=== PATIENT | male | born 1970 | race Caucasian/White ===

== ENCOUNTER → 2020-11-19 | Outpatient (CLI) | payer OTHER ==
[~2020-11-19] MED LIST: ASPIRIN EC81 MG PO; ATORVASTATIN CA20 MG PO; HYDROCODON-ACE1 EAC2 PO; IMDUR ER TAB 3030 MG PO
== END ==
LOC: KOH-I 14:56
DX: M25.561 Pain in right knee (principal); M25.461 Effusion, right knee
CPT/HCPCS: 73562

== ENCOUNTER → 2021-01-16 | Outpatient (CLI) | payer OTHER | LOC: EMI 15:39 | DX: M25.561 Pain in right knee (principal); M71.21 Synovial cyst of popliteal space [Baker], right knee | CPT/HCPCS: 73721 ==

== ENCOUNTER → 2021-03-06 | Day surgery (SDC) | payer OTHER ==
[2021-03-06 08:56] LABS: HEMOGLOBIN 16.3 gm/dl (14.0-17.5); RED BLOOD COUNT 5.42 M/UL (4.20-5.50); WHITE BLOOD COUNT 6.3 K/UL (4.5-11.0)
[2021-03-06 09:17] LABS: BUN/CREATININE RATIO 16 (0-10)
== END | disposition home or self-care (01) ==
LOC: OR 08:01
PROVIDERS: Orthopaedic Surgery
PROC: 0SBC4ZZ Excision of Right Knee Joint, Percutaneous Endoscopic Approach (ICD-10-PCS; principal; 2021-03-06 10:25)
DX: S83.231A Complex tear of medial meniscus, current injury, right knee, initial encounter (principal); S83.281A Other tear of lateral meniscus, current injury, right knee, initial encounter; S83.511A Sprain of anterior cruciate ligament of right knee, initial encounter; M17.11 Unilateral primary osteoarthritis, right knee; M22.41 Chondromalacia patellae, right knee; M23.41 Loose body in knee, right knee; I10 Essential (primary) hypertension; E78.5 Hyperlipidemia, unspecified; J44.9 Chronic obstructive pulmonary disease, unspecified; G47.30 Sleep apnea, unspecified; F17.210 Nicotine dependence, cigarettes, uncomplicated; Z88.0 Allergy status to penicillin; Z79.899 Other long term (current) drug therapy; X50.1XXA Overexertion from prolonged static or awkward postures, initial encounter
CPT/HCPCS: 80048; 85025; J0690; J1100; J2001; J2250; J2405; J2704; J3010

== ENCOUNTER → 2021-04-16 | Outpatient (CLI) | payer OTHER | LOC: KOH-I 12:47 | DX: R06.00 Dyspnea, unspecified (principal) | CPT/HCPCS: 71046 ==

== ENCOUNTER → 2021-06-12 | Outpatient (CLI) | payer OTHER | LOC: HEART 5 09:00 | DX: R07.9 Chest pain, unspecified (principal); R94.39 Abnormal result of other cardiovascular function study | CPT/HCPCS: 78452; 93306; A9502 ==

== ENCOUNTER → 2021-07-31 | Outpatient (CLI) | payer OTHER | LOC: HEART 5 14:25 | DX: R20.9 Unspecified disturbances of skin sensation (principal) ==

== ENCOUNTER 2022-06-10 11:06 | Observation (INO) | payer OTHER ==
[~2022-06-10] VITALS: Ht 182.9 cm; Wt 88.9 kg
[2022-06-10 12:11] LABS: HEMOGLOBIN 14.8 gm/dl (14.0-17.5); RED BLOOD COUNT 4.9 M/UL (4.20-5.50); WHITE BLOOD COUNT 7.9 K/UL (4.5-11.0)
[2022-06-10 12:36] LABS: BUN/CREATININE RATIO 18 (0-10)
[2022-06-10] MEDS ORDERED: PROAIR HFA8.5 GM INH (14:38)
[2022-06-10] MEDS ORDERED: SPIRIVA HANDIH18 MCG INH (14:38)
[2022-06-11 02:01] LABS: HEMOGLOBIN 14.9 gm/dl (14.0-17.5); RED BLOOD COUNT 4.98 M/UL (4.20-5.50); WHITE BLOOD COUNT 7.1 K/UL (4.5-11.0)
[2022-06-11 02:26] LABS: BUN/CREATININE RATIO 17 (0-10)
[2022-06-11] MEDS ORDERED: ASPIRIN EC81 MG PO (14:23)
[2022-06-11] MEDS ORDERED: LIPITOR40 MG PO (14:23)
[2022-06-11] MEDS ORDERED: ISOSORBIDE MONO30 MG PO (14:23)
== END 2022-06-11 15:37 | disposition home or self-care (01) ==
LOC: ER1 11:06 → CDU 13:42 → MED SURG 4 15:46
PROVIDERS: Physician Assistant; ADMIT Internal Medicine Infectious Disease
DX: I25.10 Atherosclerotic heart disease of native coronary artery without angina pectoris (principal); I25.84 Coronary atherosclerosis due to calcified coronary lesion; R00.1 Bradycardia, unspecified; E78.5 Hyperlipidemia, unspecified; I10 Essential (primary) hypertension; J44.9 Chronic obstructive pulmonary disease, unspecified; Z72.0 Tobacco use; Z86.16 Personal history of COVID-19; Z88.0 Allergy status to penicillin; Z82.49 Family history of ischemic heart disease and other diseases of the circulatory system
CPT/HCPCS: 36415; 71045; 80048; 80053; 82550; 82553; 84484; 85025; 85379; 93005; 93571; 96372; 99152; 99153; 99285; C1769; C1887; C1894; G0378; J1644; J1650; J2250; J3010; J7040; Q9967